=== PATIENT | female | born 1960 | race Caucasian/White ===

== ENCOUNTER 2025-04-21 11:04 | Inpatient (IN) | payer OTHER ==
[~2025-04-21] VITALS: Ht 162.6 cm; Wt 88.2 kg
[2025-04-21] MEDS ORDERED: ONDANSETRON HCL 4 MG/2 ML VIAL ONE (11:34)
[2025-04-21] MEDS: ONDANSETRON HCL 4 MG/2 ML VIAL IVP ONE (11:36)
[2025-04-21 11:39] LABS: CALCIUM, TOTAL 9.2 mg/dL (8.8-10.5); CREATININE 0.40 mg/dL (0.60-1.30); GLOMERULAR FILTR. RATE CALC > 60 mL/min (>60); GLUCOSE,RANDOM 115 mg/dL (70-110); SODIUM SERUM 140 mmol/L (136-145); UREA NITROGEN, BLOOD 12 mg/dL (7-18)
[2025-04-21 11:46] LABS: PLATELET COUNT (AUTO) 283 K/uL (150-450); RED BLOOD CELL COUNT(AUTO) 4.52 MIL/uL (4.00-5.20); RED CELL DISTRIBUTION WIDTH 12.9 % (11.5-14.5); WHITE BLOOD COUNT (AUTO) 6.3 K/uL (4.5-11.0)
[2025-04-21 11:48] LABS: ASPARTATE AMINOTRANSFERASE 24 U/L (15-37); CHOL/HDL RATIO 3.6 (3.9-5.7); LDL CHOL (CALC.) 86 mg/dL (0-130); TOTAL PROTEIN, SERUM 7.4 g/dL (6.4-8.2)
[2025-04-21 11:50] LABS: TROPONIN I-HIGH SENSITIVITY 4 ng/L (<51)
[2025-04-21] MEDS: CLOPIDOGREL BISULFATE 300 MG TABLET PO ONE (12:46)
[2025-04-21] MEDS: ASPIRIN 325 MG TABLET PO ONE (12:46)
[2025-04-21] MEDS: POTASSIUM CHLORIDE 20 MEQ ER TABLET PO ONE (14:00)
[2025-04-21 14:19] LABS: APPEARANCE,URINE CLEAR (CLEAR); GLUCOSE, URINE (UA) NEGATIVE (NEGATIVE); LEUKOCYTE ESTERASE ,URINE NEGATIVE (NEGATIVE); NITRATE,URINE NEGATIVE (NEGATIVE); OCCULT BLOOD,URINE NEGATIVE (NEGATIVE); PH,URINE DRUG SCREEN 7.5 (5.0-8.0); SPECIFIC GRAVITIY, URINE 1.040 (1.003-1.030)
[2025-04-21 14:25] LABS: AMPHET/METH SCREEN,URINE NEGATIVE (NEGATIVE); BARBITURATE SCREEN, URINE NEGATIVE (NEGATIVE); CANNABINOID SCREEN,URINE NEGATIVE (NEGATIVE); COCAINE SCREEN,URINE NEGATIVE (NEGATIVE); METHADONE SCREEN, URINE NEGATIVE (NEGATIVE)
[2025-04-21 14:27] LABS: ALCOHOL, URINE DRUG SCREEN NEGATIVE (NEGATIVE)
[2025-04-21] MEDS ORDERED: ONDANSETRON HCL 4 MG/2 ML VIAL IVP PRN (14:45)
[2025-04-21] MEDS ORDERED: POTASSIUM CHL 10 MEQ/WATER 50 ML IV PRN (14:45)
[2025-04-21] MEDS ORDERED: POTASSIUM CHLORIDE 20 MEQ ER TABLET PO PRN (14:45)
[2025-04-21] MEDS ORDERED: MAGNESIUM HYDROXIDE SUSPENSION 30 ML UDCUP PO PRN (14:45)
[2025-04-21] MEDS: DEXTROSE 5%-0.9% SODIUM CHL 1,000 ML IV ONE (14:59)
[2025-04-21] MEDS: ATORVASTATIN CALCIUM 40 MG TABLET PO SCH (15:02)
[2025-04-21] MEDS: HEPARIN SODIUM,PORCINE 5,000 UNITS/ML VIAL SQ SCH (15:57)
[2025-04-21 17:59] LABS: TROPONIN I-HIGH SENSITIVITY 5 ng/L (<51)
[2025-04-21] MEDS: DOCUSATE SODIUM 100 MG CAPSULE PO SCH (21:00)
[2025-04-21 21:40] VITALS: BP 115/78; PULSE 66; RESP 18; TEMP 98.4; O2SAT 99
[2025-04-21 23:50] LABS: TROPONIN I-HIGH SENSITIVITY 4 ng/L (<51)
[2025-04-22] VITALS (7 sets, daily range): BP systolic 106–141; BP diastolic 70–91; PULSE 59–70; RESP 17–18; TEMP 97.5–98.3; O2SAT 97–98
[2025-04-22 06:25] LABS: CALCIUM, TOTAL 8.6 mg/dL (8.8-10.5); CREATININE 0.43 mg/dL (0.60-1.30); GLOMERULAR FILTR. RATE CALC > 60 mL/min (>60); GLUCOSE,RANDOM 95 mg/dL (70-110); SODIUM SERUM 141 mmol/L (136-145); UREA NITROGEN, BLOOD 10 mg/dL (7-18)
[2025-04-22 07:44] LABS: PLATELET COUNT (AUTO) 287 K/uL (150-450); RED BLOOD CELL COUNT(AUTO) 4.19 MIL/uL (4.00-5.20); RED CELL DISTRIBUTION WIDTH 12.9 % (11.5-14.5); WHITE BLOOD COUNT (AUTO) 5.4 K/uL (4.5-11.0)
[2025-04-22] MEDS: ASPIRIN 81 MG CHEWABLE TABLET PO SCH (08:26)
[2025-04-22] MEDS: CLOPIDOGREL BISULFATE 75 MG TABLET PO SCH (08:26)
[2025-04-22] MEDS: PANTOPRAZOLE SODIUM 40 MG/VIAL IVP SCH (08:27)
[2025-04-22] MEDS: ACETAMINOPHEN 325 MG TABLET PO PRN (20:12)
[2025-04-23 03:50] VITALS: BP 134/74; PULSE 56; RESP 18; TEMP 98.2; O2SAT 97
[2025-04-23 08:29] VITALS: BP 131/76; PULSE 55; RESP 17; TEMP 97.9; O2SAT 96
[2025-04-23] MEDS ORDERED: CLOP75TA83 PO (08:43)
[2025-04-23] MEDS ORDERED: ASPI-1450 PO (08:43)
[2025-04-23] MEDS ORDERED: ATOR40TA71 PO (08:43)
[2025-04-23 09:39] LABS: PLATELET COUNT (AUTO) 280 K/uL (150-450); RED BLOOD CELL COUNT(AUTO) 4.32 MIL/uL (4.00-5.20); RED CELL DISTRIBUTION WIDTH 13.1 % (11.5-14.5); WHITE BLOOD COUNT (AUTO) 4.9 K/uL (4.5-11.0)
[2025-04-23 09:56] LABS: CALCIUM, TOTAL 9.1 mg/dL (8.8-10.5); CREATININE 0.53 mg/dL (0.60-1.30); GLOMERULAR FILTR. RATE CALC > 60 mL/min (>60); GLUCOSE,RANDOM 86 mg/dL (70-110); SODIUM SERUM 139 mmol/L (136-145); UREA NITROGEN, BLOOD 11 mg/dL (7-18)
[2025-04-23 12:15] VITALS: BP 138/78; PULSE 62; RESP 16; TEMP 98.2; O2SAT 97
== END 2025-04-23 15:00 | disposition home or self-care (01) | DRG 65 ==
LOC: EMS 11:04 → EDH 14:50 → 5S 21:13
PROVIDERS: ADMIT Internal Medicine; ATTEND Internal Medicine
DX: I63.81 Other cerebral infarction due to occlusion or stenosis of small artery (principal); G81.94 Hemiplegia, unspecified affecting left nondominant side; I63.331 Cerebral infarction due to thrombosis of right posterior cerebral artery; E03.9 Hypothyroidism, unspecified; E78.00 Pure hypercholesterolemia, unspecified; E87.6 Hypokalemia; Z79.82 Long term (current) use of aspirin; Z79.02 Long term (current) use of antithrombotics/antiplatelets; Z79.899 Other long term (current) drug therapy; R53.1 Weakness
CPT/HCPCS: 70496; 70498; 70544; 70551; 71045; 80048; 80053; 80061; 80307; 81001; 82271; 82948; 83036; 84484; 85025; 85610; 85730; 86850; 86900; 86901; 92526; 92610; 93005; 93306; 93880; 96374; 97163; 97166; 97535; 99285; J1644; J2405; J2470; J7042; 36415-L1; 36415-TC; 70450; 70450-TC